=== PATIENT | female | born 1960 | race Caucasian/White ===

== ENCOUNTER 2020-12-10 01:55 | Emergency (ER) | payer SELFPAY ==
[~2020-12-10] VITALS: Ht 154.9 cm; Wt 65.0 kg
--- NOTE | 2020-12-10 02:06 | NUR ---
TIME OF 0205 BY MD BADILLO
[2020-12-10 04:38] VITALS: BP 0/0
== END 2020-12-10 04:40 | disposition expired ==
LOC: ER 01:56
DX: I46.9 Cardiac arrest, cause unspecified (principal); R00.0 Tachycardia, unspecified; R06.02 Shortness of breath
CPT/HCPCS: 31500; 92950; 94799; 99285